=== PATIENT | female | born 1995 | race Caucasian/White ===

== ENCOUNTER → 2018-12-21 | Emergency (ER) | payer OTHER ==
[~2018-12-21] VITALS: Ht 160 cm; Wt 69.9 kg
== END | disposition left against medical advice (07) ==
LOC: ER 13:11
DX: R10.2 Pelvic and perineal pain (principal)

== ENCOUNTER → 2018-12-25 | Emergency (ER) | payer OTHER ==
[~2018-12-25] VITALS: Ht 160 cm; Wt 69.9 kg
[~2018-12-25] MED LIST: ZANTAC300 MG PO
== END | disposition home or self-care (01) ==
LOC: ER 19:39
DX: O20.0 Threatened abortion (principal)

== ENCOUNTER 2019-01-11 14:58 | Emergency (ER) | payer OTHER ==
[~2019-01-11] VITALS: Ht 152.4 cm; Wt 69.9 kg
== END 2019-01-11 17:26 | disposition home or self-care (01) ==
LOC: ER 14:58
DX: O21.0 Mild hyperemesis gravidarum (principal); Z3A.01 Less than 8 weeks gestation of pregnancy; R42 Dizziness and giddiness

== ENCOUNTER 2021-01-16 14:57 | Emergency (ER) | payer OTHER ==
[~2021-01-16] VITALS: Ht 160 cm; Wt 75.3 kg
[2021-01-16] MEDS ORDERED: PRENA1 TRUE CO1 EACH (15:27)
== END 2021-01-16 21:38 | disposition home or self-care (01) ==
LOC: ER 14:57
DX: R10.2 Pelvic and perineal pain (principal); Z3A.17 17 weeks gestation of pregnancy